=== PATIENT | female | born 1970 | race Two or more races ===

== ENCOUNTER 2025-03-12 23:37 | Emergency (ER) | payer MEDICAID, SELFPAY ==
[2025-03-13 00:12] VITALS: BP 137/89; PULSE 90; RESP 21; TEMP 36.5; O2SAT 99
--- NOTE | 2025-03-13 01:33 | PD.EDWOUND ---
ED Wound/Laceration-RME/HPI General Chief Complaint: Wound Recheck / Suture Removal Stated Complaint: STAPLE REMOVAL Time Seen by Provider: 03/13/25 00:15 Arrival date/time: 03/12/25 23:37 54F with history of breast cancer, hypothyroidism, asthma, and anxiety presents to ED for head staple removal after she had them put in [address] [facility] ED visit 9 days ago after falling off a ladder. Limitations: no limitations Related Data Home Medications ?Medication ?Instructions ?Recorded ?Confirmed HYDROCODONE BITARTRATE/APAP (NORCO 1 tab PO BID ##0 10/05/13 11/24/17 10/325) clonazepam 1 mg tablet (Klonopin) 1 mg PO QID #0 tabs 10/05/13 11/24/17 levothyroxine 50 mcg tablet 50 mcg PO QDAY #0 tabs 10/05/13 11/24/17 (Synthroid) anastrozole 1 mg tablet (Arimidex) 1 mg PO QDAY 11/24/17 11/24/17 Previous Rx's ?Medication ?Instructions ?Recorded lorazepam 0.5 mg tablet 0.5 mg PO twice a day #10 tabs 03/17/16 prednisone 20 mg tablet 20 mg PO QAM rash #5 tabs 09/10/17 hydrocodone 5 mg-acetaminophen 325 1 tab PO Q6H #10 tabs 11/24/17 mg tablet ([place]) ibuprofen 600 mg tablet 600 mg PO Q8H PRN fever #20 tabs 11/24/17 ibuprofen 800 mg tablet 800 mg PO TID PRN pain #30 tabs 03/17/21 Allergies Allergy/AdvReac Type Severity Reaction Status Date / Time adhesive tape Allergy Severe ITCHING / Verified 03/12/25 23:37 RASH erythromycin base Allergy Severe Swelling Verified 03/12/25 23:37 of Lip/Tongue/Throat trazodone Allergy Severe RASH, Verified 03/12/25 23:37 THROAT SWELLING Review of Systems Review of Systems Systems Reviewed: All systems reviewed, normal except as documented Constitutional Constitutional: Reports system reviewed and no additional complaints, except as documented, Denies fever(s) and Denies headache(s) ENT Ears, Nose, Mouth, and Throat: Denies disequilibrium and Denies headache(s) Cardiovascular Cardiovascular: Reports system reviewed and no additional complaints, except as documented, Denies chest pain and Denies dyspnea Respiratory Respiratory: Reports system reviewed and no additional complaints, except as documented, Denies cough and Denies dyspnea Gastrointestinal Gastrointestinal: Reports system reviewed and no additional complaints, except as documented, Denies abdominal pain, Denies nausea and Denies vomiting Neurologic Neurologic: Reports system reviewed and no additional complaints, except as documented, Denies confusion, Denies disequilibrium and Denies headache(s) Psychiatric Psychiatric: Denies confusion Past Medical History Past Medical History CARDIAC: Negative Cardiac Disorders or Congestive Heart Failure RESPIRATORY: Positive Asthma; Negative Chronic Obstructive Pulmonary Disease (COPD) GENITOURINARY: Negative Renal Disease REPRODUCTIVE: Positive Breast Cancer ENDOCRINE: Negative Diabetes Mellitus Type 1 or Diabetes Mellitus Type 2 HEMATOLOGIC: Negative Sickle Cell Disease OTHER HISTORY: Positive Cancer and Breast Cancer; Negative Autoimmune Disease Family History FAMILY HISTORY: Positive Family Cancer and Family Surgery; Negative Family Anesthesia Reaction Surgical History SURGICAL: Positive Lumpectomy (LEFT ARM) Social History SMOKING STATUS: Never smoker ED Exam General Limitations: Present no limitations General appearance: Present alert and in no apparent distress Expanded Head Exam Head exam physical: Present laceration (5 jordon around well-healed incision on posterior scalp) Eye Eye exam: Present normal appearance, PERRL and EOMI ENT ENT exam: Present normal exam, normal oropharynx and mucous membranes moist Neck Neck exam: Present normal inspection, full ROM and trachea midline Chest Chest inspection: Present normal inspection and symmetric chest wall rise Respiratory Respiratory exam: Present normal lung sounds bilaterally Cardiovascular Cardiovascular exam: Present regular rate, normal rhythm and normal heart sounds Abdominal Exam Abdominal exam: Present soft and normal bowel sounds Extremities Exam Extremities exam: Present normal inspection and full ROM Back Exam Back exam: Present normal inspection and full ROM Neurological Exam Neurological exam: Present alert, oriented X3 and CN II-XII intact Psychiatric Psychiatric exam: Present normal affect and normal mood Skin Skin exam: Present warm, dry, intact and normal color Course Quality Measures none Orders Category Date Time Status Suture / Staple Removal NOW Care 03/13/25 00:15 Active Vital Signs Vital signs: Vital Signs Temperature 97.7 F 03/13/25 00:12 Pulse Rate 90 03/13/25 00:12 Respiratory Rate 21 H 03/13/25 00:12 Blood Pressure 137/89 H 03/13/25 00:12 Pulse Oximetry (%) 99 03/13/25 00:12 Oxygen Delivery Method Room Air 03/13/25 00:12 O2 at 99% on RA and WNLs Wound / Laceration MDM Narrative MDM Narrative:: 54F with history of breast cancer, hypothyroidism, asthma, and anxiety presents to ED for head staple removal after she had them put in [address] [facility] ED visit 9 days ago after falling off a ladder. Physical exam reveals 5 jordon around well-healed incision on posterior scalp. Patient is afebrile, calm, and alert. 5 jordon removed. Patient data External records reviewed:: [facility] previous records Clinical information provided by:: patient Social determinants that could affect healthcare access:: mental health Patient has the following chronic illnesses:: breast cancer, hypothyroidism, asthma, and anxiety How is presenting disease/condition affected by chronic disease/condition?: uneffected by Evaluation data The following diagnostics were reviewed and interpreted by me:: other (specify) (none) Lab and/or radiology exams considered but not ordered:: not ordered Interpretation Summary: n/a Medications / Prescriptions Medications or Prescriptions considered but not ordered:: not ordered Medication administrations:: n/a Consultations Consultation(s) initiated? (list below): No Diagnosis Wound Differential Diagnosis: laceration, abrasion, avulsion of skin and other (staple removal) Most likely diagnosis given after review of the tests above:: staple removal Admission Indicated Admission indicated?: not indicated Admission Request Was there a request for admission?: No Disposition Plan Disposition Plan: Discharge Discharge Attestation Discharge Attestation: The patient and all family members were given an opportunity to ask questions and understood the discharge instructions. Discharge instructions specifically effects, indications for sooner follow up or return to the emergency department, and the expected course of current diagnosis. Patient condition: Stable Discharge Plan Plan Patient Disposition: HOME (Self Care) Discharge Disposition comment: Stable Prescriptions/Referrals Prescriptions/Med Rec: No Action clonazepam [Klonopin] 1 MG tablet 1 mg PO QID Qty: 0 levothyroxine [Synthroid] 50 MCG tablet 50 mcg PO QDAY Qty: 0 HYDROCODONE BITARTRATE/APAP (NORCO 10/325) 1 TAB tablet 1 tab PO BID Qty: 0 lorazepam 0.5 MG tablet 0.5 mg PO twice a day Qty: 10 0RF prednisone 20 MG tablet 20 mg PO QAM Qty: 5 0RF Rx Instructions: use for 5 days anastrozole [Arimidex] 1 mg Tablet 1 mg PO QDAY ibuprofen 600 mg tablet 600 mg PO Q8H PRN (Reason: fever) Qty: 20 0RF hydrocodone-acetaminophen [[place]] 5-325 mg tablet 1 tab PO Q6H MDD 3 Qty: 10 0RF ibuprofen 800 mg tablet 800 mg PO TID PRN (Reason: pain) Qty: 30 0RF Problem List Clinical Impression: Encounter for staple removal Patient/Caregiver Discharge Instructions Education Materials: ED Stitches/Staple Removal No ... Additional Instructions: Please follow-up with PCP within 24-48 hours and return immediately if symptoms worsen. Print Language: Bengali Stand Alone Forms: Patient Portal Info Letter PA/DATA REVIEWER Supervising Physician PATY/CHAY Supervising Physician: Dr. Suarez
== END 2025-03-13 01:40 | disposition home or self-care (01) ==
LOC: SERX 03-13 00:25
PROVIDERS: Emergency Provider Emergency Medicine; PCP Family Medicine
DX: S01.01XD Laceration without foreign body of scalp, subsequent encounter (principal); W11.XXXD Fall on and from ladder, subsequent encounter
CPT/HCPCS: 99284